=== PATIENT | female | born 1965 | race Two or more races ===

== ENCOUNTER 2023-09-27 16:57 | Emergency (ER) | payer MEDICAID ==
[~2023-09-27] VITALS: Ht 157.5 cm; Wt 79.7 kg
[2023-09-27 17:05] VITALS: BP 185/83; PULSE 89; RESP 16; TEMP 99.8; O2SAT 96
== END 2023-09-27 17:20 | disposition home or self-care (01) ==
LOC: ER 16:58
DX: S61.411D Laceration without foreign body of right hand, subsequent encounter (principal); W26.0XXD Contact with knife, subsequent encounter
CPT/HCPCS: 99281